=== PATIENT | male | born 1965 | race Two or more races ===

== ENCOUNTER 2020-06-25 08:25 | Day surgery (SDC) | payer BC, OTHER ==
--- NOTE | 2020-06-24 11:13 | PCM.PREANE ---
Preanesthetic Assessment - Anesthesia/Transfusion/Family Hx Anesthesia History: Prior Anesthesia Without Reaction Family History of Anesthesia Reaction: No Transfusion History: No Prior Transfusion(s) Intubation History: Unknown - Review of Systems General: No Symptoms Pulmonary: No Symptoms Cardiovascular: No Symptoms (CAD//2016,2017: Heart stent placed times 2./History of HTN, elevated cholesterol, 05/2020: heart catheter done with no additional stenting.), Chest Pain (NTG last used two weeks ago.), Dyspnea on Exertion Gastrointestinal: No Symptoms Neurological: No Symptoms (History of back pain, none present at this time), Numbness (bilateral feet) Other: Reports: Easy Bleeding, Easy Bruising, Diabetes (am blood [id number]), Sinus Problem (left nare not as open as right.) - Physical Assessment NPO Status Date: 06/24/20 NPO Status Time: 22:00 Vital Signs: HR:92 B/P:120/70 Sat:96% Temp:97.7 Resp:20 Height: 1.65 m Weight: 77.111 kg ASA Class: 3 Mental Status: Alert & Oriented x3 Airway Class: Mallampati = 2 Dentition: Reports: Normal Dentition, Caries Thyro-Mental Finger Breadths: 3 Mouth Opening Finger Breadths: 3 ROM/Head Extension: Full Lungs: Clear to Auscultation, Normal Respiratory Effort Cardiovascular: Regular Rate, Regular Rhythm, No Murmurs - Lab Values: All labs reviewed and noted and within acceptable ranges to proceed with scheduled procedure. - Imaging/EKG Impressions: EKG: SB rate=54 - Allergies Allergies/Adverse Reactions: Allergies Allergy/AdvReac Type Severity Reaction Status Date / Time rosuvastatin [From Crestor] Allergy Leg Cramps Verified 06/24/20 14:05 - Anesthesia Plan Pre-Op Medication Ordered: Beta Ryan Beta Ryan: Metoprolol Med Last Dose Date: 06/25/20 Med Last Dose Time: 08:00 - Acknowledgements Anesthesia Type Planned: MAC Pt an Appropriate Candidate for the Planned Anesthesia: Yes Alternatives and Risks of Anesthesia Discussed w Pt/Guardian: Yes Pt/Guardian Understands and Agrees with Anesthesia Plan: Yes PreAnesthesia Questionnaire HEENT History: Reports: None Cardiovascular History: Reports: High Cholesterol, Hypertension Respiratory History: Reports: None Gastrointestinal History: Reports: GERD Genitourinary History: Reports: None Musculoskeletal History: Reports: None Neurological History: Reports: None Psychiatric History: Reports: None Endocrine/Metabolic History: Reports: Diabetes, Type II Hematologic History: Reports: None Immunologic History: Reports: None Oncologic (Cancer) History: Reports: None Dermatologic History: Reports: None - Infectious Disease History Infectious Disease History: Reports: Chicken Pox - Past Surgical History Head Surgeries/Procedures: Reports: None - HOME MEDS Home Medications: Home Meds Aspirin 81 mg PO BEDTIME 04/15/16 [History] Nitroglycerin 0.4 mg SL ASDIRECTED PRN #24 tab.subl 04/15/16 [Rx] glipiZIDE [Glucotrol XL] 10 mg PO BID 04/15/16 [History] metFORMIN HCl [Metformin HCl] 850 mg PO TID 04/15/16 [History] atorvaSTATin [Lipitor] 20 mg PO BEDTIME 05/03/16 [History] Clopidogrel [Plavix] 75 mg PO DAILY 12/10/16 [History] Lisinopril 5 mg PO DAILY 12/10/16 [History] Metoprolol Succinate [Toprol XL] 12.5 mg PO BID 12/10/16 [History] Acetaminophen/oxyCODONE [Percocet 325-5 MG] 1 tab PO DAILY 06/24/20 [History] Empagliflozin [Jardiance] 25 mg PO DAILY 06/24/20 [History] Fenofibrate Nanocrystallized [Fenofibrate] 48 mg PO DAILY 06/24/20 [History] Gabapentin [Neurontin] 400 mg PO TID 06/24/20 [History] Insulin Degludec [Tresiba] 12 units SQ DAILY 06/24/20 [History] Isosorbide Mononitrate [Isosorbide Mononitrate ER] 120 mg PO DAILY 06/24/20 [History] Bay-3 Acid Ethyl Esters 1 gm PO BID 06/24/20 [History] Pantoprazole Sodium [Protonix] 40 mg PO DAILY 06/24/20 [History] Ranolazine [Ranolazine ER] 500 mg PO BID 06/24/20 [History] Tamsulosin HCl [Flomax] 0.4 mg PO DAILY 06/24/20 [History] - CURRENT (IN HOUSE) MEDS Current Meds: Current Medications Lactated Ringer's (Ringers, Lactated) 1,000 mls @ 125 mls/hr IV ASDIRECTED FIDEL Stop: 06/25/20 23:00 Lidocaine/Sodium Bicarbonate (Buffered Lidocaine 1% In Ns 8.4%) 0.25 ml IDERM ONETIME PRN PRN Reason: Prior to IV Start Stop: 06/25/20 18:00 Sodium Chloride (Saline Flush) 10 ml FLUSH ASDIRECTED PRN PRN Reason: Keep Vein Open Stop: 06/25/20 18:00
[~2020-06-25 08:25] MED LIST: Lactated Ringers 1,000 ML IV SCH; Lidocaine 1%/Sod Bicarbonate in NS 8.4% 1 ML Syringe IDERM PRN; Midazolam 1 MG/ML 2 ML SDV ONE; Propofol 200 MG/20 ML SDV ONE; Sodium Chloride 0.9% 10 ML Syringe FLUSH PRN
--- NOTE | 2020-06-25 09:57 | PCM.OPNOTE ---
- General Post-Op/Procedure Note Date of Surgery/Procedure: 06/25/20 Operative Procedure(s): colonoscopy Findings: 1. Diverticulosis 2. Sigmoid colon polyps x4 Pre Op Diagnosis: history of colon polyps Post-Op Diagnosis: same Anesthesia Technique: MAC Primary Surgeon: Jolly Kurtz Anesthesia Provider: Korin Peres Pathology: Sigmoid colon polyps x4 Fluid Replacement, Intraop: 800 Output, Urine Amount: 0 EBL in mLs: 0 Complications: none apparent Condition: Good
--- NOTE | 2020-06-25 10:02 | PCM48HPAN ---
Post Anesthesia Note - EVALUATION WITHIN 48HRS OF ANESTHETIC Vital Signs in Normal Range: Yes Patient Participated in Evaluation: Yes Respiratory Function Stable: Yes Airway Patent: Yes Cardiovascular Function Stable: Yes Hydration Status Stable: Yes Pain Control Satisfactory: Yes Nausea and Vomiting Control Satisfactory: Yes Mental Status Recovered: Yes Vital Signs: Last Vital Signs Temp 36.5 C 06/25/20 08:25 Pulse 92 06/25/20 08:25 Resp 20 06/25/20 08:25 BP 120/70 06/25/20 08:25 Pulse Ox 96 06/25/20 08:25
--- NOTE | 2020-06-25 10:03 | PCM.PRNOTE ---
- Free Text/Narrative Note: Operative Report Date of Surgery/Procedure: June 25, 2020 Operative Procedure: Colonoscopy to cecum Pre Op Diagnosis: history of colon polyps Post-Op Diagnosis: same Surgeon: Jolly Kurtz MD Anesthesia Technique: MAC Anesthesia Provider: Korin Peres CRNA IV Fluid Replacement, Intraop: 800cc Output, Urine Amount: 0cc EBL: 0cc Findings: 1. Diverticulosis 2. Sigmoid colon polyps x4 Specimens: Sigmoid colon polyps x4 Indication: The patient is a 54 year-old gentleman who presented to the outpatient clinic requesting colonoscopy surveillance. The patient has a history of colon polyps We discussed the procedure of a screening colonoscopy including the polypectomy and biopsy. Risks of bleeding and perforation were discussed, the patient understood and wished to proceed. Written and consent was obtained Description of the procedure: The patient was brought to the endoscopy suite and placed in the left lateral decubitus position. Appropriate monitors were applied. The patient was given MAC anesthesia. An anorectal examination was performed, revealing no external abnormalities. The scope was placed into the rectum and advanced to cecum with minimal difficulty. The patients cecum was entered, and the ileocecal valve and appendiceal orifice were identified and normal. At this point, the scope was withdrawn, paying careful attention to the mucosa. The patient had good bowel prep, allowing for visualization of 85-90% of the mucosa. Diverticulosis scattered throughout the colon was noted. The patient had 5 flat polyps 2-3mm in the sigmoid colon, removed with jumbo cold biopsy forceps. In the rectum, the scope was retroflexed and no abnormalities were noted, except for some hemorrhoidal tissue. The scope was placed back in the lumen and the excess air was aspirated. The patient tolerated the procedure well. Complications: none apparent Condition: Good, transported to PACU in stable condition Jolly Kurtz MD General Surgery
[2020-06-25 10:41] VITALS: BP 96/61; PULSE 50
== END 2020-06-25 10:58 | disposition home or self-care (01) ==
LOC: JD.SDS 08:25
PROVIDERS: ATTEND Surgery
DX: Z12.11 Encounter for screening for malignant neoplasm of colon (principal); K63.5 Polyp of colon; K64.9 Unspecified hemorrhoids; K57.30 Diverticulosis of large intestine without perforation or abscess without bleeding; E78.00 Pure hypercholesterolemia, unspecified; I10 Essential (primary) hypertension; K21.9 Gastro-esophageal reflux disease without esophagitis; E11.9 Type 2 diabetes mellitus without complications; Z79.82 Long term (current) use of aspirin; Z11.59 Encounter for screening for other viral diseases; Z86.010 Personal history of colon polyps; Z98.890 Other specified postprocedural states; Z88.8 Allergy status to other drugs, medicaments and biological substances; Z79.899 Other long term (current) drug therapy; Z79.4 Long term (current) use of insulin; Z87.891 Personal history of nicotine dependence
CPT/HCPCS: 45380; 87635; J2250; J2704; J7120; 00811; U0002